=== PATIENT | female | born 1935 ===

== ENCOUNTER 2016-09-11 13:10 | Emergency (ER) | payer OTHER ==
[2016-09-11 13:24] VITALS: BP 151/72; PULSE 68; RESP 18; TEMP 98.1; O2SAT 99
--- NOTE | 2016-09-11 14:21 | ED PDOC ---
HPI: General Adult Time Seen by Provider: 09/11/16 13:29 Chief Complaint (Nursing): Eye Problem Additional Complaint(s): Jesusita Hopkins is a 81 year old female, with a previous medical history of hypertension and CAD, who presents to the ED with complaints of right temporal region for 3 weeks. Pt states sometimes she feels it in the right maxillary area as well. PT states she has had simusitis in the past but never pain on the side of the head. Pt states pain is a throbbing sensation. Pt denies any vision changes or trauma. Pt denies any additional complaints at this time. 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 PMD: none provided Past Medical History Reviewed: Historical Data, Nursing Documentation, Vital Signs Vital Signs: Last Vital Signs Temp 98.1 F 09/11/16 13:22 Pulse 68 09/11/16 13:22 Resp 18 09/11/16 13:22 BP 151/72 H 09/11/16 13:22 Pulse Ox 99 09/11/16 14:25 - Medical History PMH: CAD, HTN - Surgical History Surgical History: Appendectomy - Family History Family History: States: Unknown Family Hx - Home Medications Home Medications: Ambulatory Orders Medication Instructions Recorded Acetaminophen with Codeine 1 tab PO Q6H PRN #20 tab 05/23/14 [Tylenol with Codeine No. 3 300 mg-30 mg] Acetaminophen [Tylenol] 650 mg PO Q4 #30 tab 11/09/15 Cyclobenzaprine [Cyclobenzaprine 10 mg PO BID #14 tab 11/09/15 HCl] Azithromycin [Zithromax] 250 mg PO DAILY #6 tab 04/19/16 Promethazine/Codeine 5 ml PO Q8 #60 ml 04/19/16 [Codeine/Promethazine 10 MG/5 Ml-6.25 MG/5 Ml] predniSONE [predniSONE Tab] 60 mg PO DAILY #6 tab 09/11/16 - Allergies Allergies/Adverse Reactions: Allergies Allergy/AdvReac Type Severity Reaction Status Date / Time meprobamate Allergy RASH Verified 11/09/15 11:40 Review of Systems ROS Statement: Except As Marked, All Systems Reviewed And Found Negative Eyes: Negative for: Vision Change ENT: Positive for: Other (right sided maxillary sinus pain and temporal pain) Physical Exam - Reviewed Nursing Documentation Reviewed: Yes Vital Signs Reviewed: Yes - Physical Exam Appears: Positive for: Well, Non-toxic, No Acute Distress Head Exam: Positive for: ATRAUMATIC, NORMAL INSPECTION, NORMOCEPHALIC Skin: Positive for: Normal Color, Warm, DRY ENT: Positive for: Normal ENT Inspection ((+) tednerenss right temoral region). Negative for: Sinus Pain/Drainage Cardiovascular/Chest: Positive for: Regular Rate, Rhythm ((+) tenderness right temporal region ) Respiratory: Positive for: Normal Breath Sounds. Negative for: Accessory Muscle Use, Respiratory Distress Extremity: Positive for: Normal ROM - Laboratory Results Result Diagrams: 09/11/16 14:30 09/11/16 14:30 - ECG O2 Sat by Pulse Oximetry: 99 (RA) Pulse Ox Interpretation: Normal Medical Decision Making Medical Decision Making: Initial Impression: Sinus pain r/o temporal arthritis Initial Plan: * labs * sed rate * reevaluation Elevation of sed rate. Discussed possible temporal arteries and f/u with me on Wednesday in ER. Will begin on oral steroids. Ordered CRP which is send out (1-2 days) Scribe Attestation: Documented by Antoinette Hobbs, acting as a scribe for Nena Martin PA-C. Provider Scribe Attestation: All medical record entries made by the Scribe were at my direction and personally dictated by me. I have reviewed the chart and agree that the record accurately reflects my personal performance of the history, physical exam, medical decision making, and the department course for this patient. I have also personally directed, reviewed, and agree with the discharge instructions and disposition. Disposition - Clinical Impression Clinical Impression: Temporal arteritis - Patient ED Disposition Is Patient to be Admitted: No Counseled Patient/Family Regarding: Diagnosis, Need For Followup, Rx Given - Disposition Referrals: Nena Martin PA-C [Emergency Midlevel Provider] - Disposition: Routine/Home Disposition Time: 17:39 Condition: GOOD Additional Instructions: Zoe return to ER wednesday between 10-8pm Prescriptions: predniSONE [predniSONE Tab] 60 mg PO DAILY #6 tab Instructions: Temporal Arteritis (ED)
[2016-09-11 14:45] LABS: HEMATOCRIT 38.7 % (34.0-47.0); MEAN CELL VOLUME 94.6 fl (81.0-99.0); MEAN CORPUSCULAR HEMOGLOBIN 30.7 pg (27.0-31.0); MEAN CORPUSCULAR HGB CONC 32.5 g/dL (33.0-37.0); RED CELL DISTRIBUTION WIDTH 14.5 % (11.5-14.5); WHITE BLOOD COUNT 5.8 K/uL (4.8-10.8)
[2016-09-11 15:02] LABS: ALB/GLOB RATIO 1.1 (1.0-2.1); BILIRUBIN,TOTAL 0.5 mg/dl (0.2-1.3); CALCIUM 10.1 mg/dL (8.4-10.2); POTASSIUM 4.5 MMOL/L (3.6-5.0); TOTAL PROTEIN 8.2 G/DL (6.3-8.2)
== END 2016-09-11 17:46 | disposition home or self-care (01) ==
LOC: H.ER 13:10
DX: M31.6 Other giant cell arteritis (principal); I25.10 Atherosclerotic heart disease of native coronary artery without angina pectoris; I10 Essential (primary) hypertension

== ENCOUNTER 2016-09-14 10:13 | Emergency (ER) | payer OTHER ==
[2016-09-14 10:21] VITALS: BP 136/64; PULSE 66; RESP 16; TEMP 97.7; O2SAT 100
--- NOTE | 2016-09-14 10:50 | ED PDOC ---
HPI: CCC, URI, Sore Throat Time Seen by Provider: 09/14/16 10:15 Chief Complaint (Nursing): ENT Problem Chief Complaint (Provider): Right maxiallary and temporal pain/tenderness Additional Complaint(s): Pt reports pain for over 3 weeks. Pt states she has not improvement with steroids for 3 days. Pt reports right maxillary sinus pressure and right temporal pressure. Past Medical History Reviewed: Historical Data, Nursing Documentation, Vital Signs Vital Signs: Last Vital Signs Temp 97.7 F 09/14/16 10:19 Pulse 66 09/14/16 10:19 Resp 16 09/14/16 10:19 BP 136/64 09/14/16 10:19 Pulse Ox 100 09/14/16 10:19 - Medical History PMH: CAD, HTN, Hypercholesterolemia Denies: Chronic Kidney Disease - Surgical History Surgical History: Appendectomy - Family History Family History: States: Unknown Family Hx - Living Arrangements Living Arrangements: With Family - Social History Current smoker - smoking cessation education provided: No Alcohol: None Drugs: Denies - Home Medications Home Medications: Ambulatory Orders Medication Instructions Recorded Acetaminophen with Codeine 1 tab PO Q6H PRN #20 tab 05/23/14 [Tylenol with Codeine No. 3 300 mg-30 mg] Acetaminophen [Tylenol] 650 mg PO Q4 #30 tab 11/09/15 Cyclobenzaprine [Cyclobenzaprine 10 mg PO BID #14 tab 11/09/15 HCl] Azithromycin [Zithromax] 250 mg PO DAILY #6 tab 04/19/16 Promethazine/Codeine 5 ml PO Q8 #60 ml 04/19/16 [Codeine/Promethazine 10 MG/5 Ml-6.25 MG/5 Ml] predniSONE [predniSONE Tab] 60 mg PO DAILY #6 tab 09/11/16 Amoxicillin/Clavulanate [Augmentin 1 tab PO BID #20 tab 09/14/16 875 MG-125 MG] - Allergies Allergies/Adverse Reactions: Allergies Allergy/AdvReac Type Severity Reaction Status Date / Time meprobamate Allergy RASH Verified 09/14/16 10:30 Physical Exam - Reviewed Nursing Documentation Reviewed: Yes Vital Signs Reviewed: Yes - Physical Exam Appears: Positive for: Well, Non-toxic, No Acute Distress Head Exam: Positive for: ATRAUMATIC, NORMAL INSPECTION, NORMOCEPHALIC Skin: Positive for: Normal Color, Warm, DRY Eye Exam: Positive for: Normal appearance, EOMI, PERRL ENT: Positive for: Normal ENT Inspection, Other ((+) tenderness of the right maxillary sinus to percussion ) Neck: Positive for: Normal, Painless ROM Cardiovascular/Chest: Positive for: Regular Rate, Rhythm Respiratory: Positive for: CNT, Normal Breath Sounds Gastrointestinal/Abdominal: Positive for: Normal Exam, Bowel Sounds, Soft Back: Positive for: Normal Inspection Extremity: Positive for: Normal ROM Neurologic/Psych: Positive for: Alert, Oriented - ECG O2 Sat by Pulse Oximetry: 100 Pulse Ox Interpretation: Normal Medical Decision Making Medical Decision Making: CRP and ESR normal. Pt reports no improvement of pain with steroids x 3 days. Will treat as sinusitis. Pt has appointment with PMD on 09/30. Discussed f.u sooner if antibiotics are not helping. Disposition - Clinical Impression Clinical Impression: Sinusitis - Patient ED Disposition Is Patient to be Admitted: No - Disposition Referrals: [facility] [Outside] Disposition: Routine/Home Disposition Time: 10:50 Condition: GOOD Prescriptions: Amoxicillin/Clavulanate [Augmentin 875 MG-125 MG] 1 tab PO BID #20 tab Instructions: Sinusitis (ED) Print Language: KYRGYZ
== END 2016-09-14 11:01 | disposition home or self-care (01) ==
LOC: H.ER 10:13
DX: J32.9 Chronic sinusitis, unspecified (principal); I10 Essential (primary) hypertension

== ENCOUNTER 2016-11-09 00:46 | Emergency (ER) | payer OTHER ==
[2016-11-09 01:05] VITALS: PULSE 101; RESP 18; TEMP 99; O2SAT 98
[2016-11-09 01:33] LABS: HEMATOCRIT 36.2 % (34.0-47.0); MEAN CELL VOLUME 93.5 fl (81.0-99.0); MEAN CORPUSCULAR HEMOGLOBIN 30.7 pg (27.0-31.0); MEAN CORPUSCULAR HGB CONC 32.9 g/dL (33.0-37.0); RED CELL DISTRIBUTION WIDTH 13.5 % (11.5-14.5); WHITE BLOOD COUNT 7.1 K/uL (4.8-10.8)
[2016-11-09 01:44] LABS: CALCIUM 9.9 mg/dL (8.4-10.2); POTASSIUM 4.3 MMOL/L (3.6-5.0)
--- NOTE | 2016-11-09 02:00 | ED PDOC ---
HPI: Hypertension/Hypotension Time Seen by Provider: 11/09/16 01:03 Chief Complaint (Nursing): High Blood Pressure Chief Complaint (Provider): High blood pressure, nausea History Per: Patient History/Exam Limitations: no limitations Onset/Duration Of Symptoms: Hrs Current Symptoms Are (Timing): Still Present Additional History Per: Family (Daughter) Additional Complaint(s): Jesusita Enrique is a 81 y/o female with a past medical history of hypertension, hypercholesterolemia, coronary artery disease, and a past surgical history of an appendectomy who presents to the ED accompanied by her daughter with a chief complaint of mild nausea. After eating some beans patient felt nervous along with some nausea. Daughter states she measured mothers blood pressure of 160 systolic and thought it was too high and brought her to the ED. Associated symptoms include chills; Denies any chest pain, shortness of breath, abdominal pain or fever. Tetanus is up to date. PMD: Dr. Schulte Past Medical History Reviewed: Historical Data, Nursing Documentation, Vital Signs Vital Signs: Last Vital Signs Temp 99 F 11/09/16 01:02 Pulse 101 H 11/09/16 01:02 Resp 18 11/09/16 01:02 BP 123/63 11/09/16 01:02 Pulse Ox 98 11/09/16 01:02 - Medical History PMH: CAD, HTN, Hypercholesterolemia Denies: Chronic Kidney Disease - Surgical History Surgical History: Appendectomy - Family History Family History: States: Unknown Family Hx - Living Arrangements Living Arrangements: With Family - Home Medications Home Medications: Ambulatory Orders Medication Instructions Recorded Acetaminophen with Codeine 1 tab PO Q6H PRN #20 tab 05/23/14 [Tylenol with Codeine No. 3 300 mg-30 mg] Acetaminophen [Tylenol] 650 mg PO Q4 #30 tab 11/09/15 Cyclobenzaprine [Cyclobenzaprine 10 mg PO BID #14 tab 11/09/15 HCl] Azithromycin [Zithromax] 250 mg PO DAILY #6 tab 04/19/16 Promethazine/Codeine 5 ml PO Q8 #60 ml 04/19/16 [Codeine/Promethazine 10 MG/5 Ml-6.25 MG/5 Ml] predniSONE [predniSONE Tab] 60 mg PO DAILY #6 tab 09/11/16 Amoxicillin/Clavulanate [Augmentin 1 tab PO BID #20 tab 09/14/16 875 MG-125 MG] - Allergies Allergies/Adverse Reactions: Allergies Allergy/AdvReac Type Severity Reaction Status Date / Time meprobamate Allergy RASH Verified 11/09/16 01:02 Review of Systems ROS Statement: Except As Marked, All Systems Reviewed And Found Negative Constitutional: Positive for: Chills. Negative for: Fever Cardiovascular: Negative for: Chest Pain Respiratory: Negative for: Shortness of Breath Gastrointestinal: Positive for: Nausea (Mild). Negative for: Abdominal Pain Psych: Positive for: Other (Nervouseness) Physical Exam - Reviewed Nursing Documentation Reviewed: Yes Vital Signs Reviewed: Yes - Physical Exam Appears: Positive for: Well, Non-toxic, No Acute Distress Head Exam: Positive for: ATRAUMATIC, NORMAL INSPECTION, NORMOCEPHALIC Skin: Positive for: Normal Color, Warm, Dry Eye Exam: Positive for: Normal appearance, EOMI, PERRL ENT: Positive for: Normal ENT Inspection Neck: Positive for: Normal Cardiovascular/Chest: Positive for: Regular Rate, Rhythm. Negative for: Murmur , Tachycardia Respiratory: Positive for: Normal Breath Sounds. Negative for: Wheezing, Respiratory Distress Gastrointestinal/Abdominal: Positive for: Normal Exam, Soft. Negative for: Tenderness Neurologic/Psych: Positive for: Alert, Oriented - Laboratory Results Result Diagrams: 11/09/16 00:15 11/09/16 00:15 - ECG O2 Sat by Pulse Oximetry: 98 (RA) Pulse Ox Interpretation: Normal Medical Decision Making Medical Decision Making: Time: 0103: Initial Impression: Nausea and Anxiety Initial Plan: * EKG * BMP * CBC * Zestril 10mg PO * Zofran Tab 4mg PO * Re-Eval 2AM: Pt. is feeling better, no longer nauseated, vss, stable for d/c. return precautions given. Scribe Attestation: Documented by Loy Calixto acting as a scribe for Jimmy Yu MD. Provider Scribe Attestation: All medical record entries made by the Scribe were at my direction and personally dictated by me. I have reviewed the chart and agree that the record accurately reflects my personal performance of the history, physical exam, medical decision making, and the department course for this patient. I have also personally directed, reviewed, and agree with the discharge instructions and disposition. Disposition - Clinical Impression Clinical Impression: Chills - Disposition Referrals: Ren Schulte MD [Primary Care Provider] - Disposition Time: 02:00 Condition: STABLE Instructions: Hypertension (ED) Print Language: KYRGYZ
[2016-11-09 02:17] VITALS: BP 126/53
--- NOTE | 2016-11-10 16:39 | CARD ---
APPROVED REPORT EKG Measurement Heart [id number] <Conclusion> Normal sinus rhythm Normal ECG
== END 2016-11-09 02:17 | disposition home or self-care (01) ==
LOC: H.ER 00:46
DX: I10 Essential (primary) hypertension (principal); R68.83 Chills (without fever); R11.0 Nausea; E78.00 Pure hypercholesterolemia, unspecified; F41.9 Anxiety disorder, unspecified; I25.10 Atherosclerotic heart disease of native coronary artery without angina pectoris

== ENCOUNTER 2017-01-03 00:47 | Emergency (ER) | payer OTHER ==
[2017-01-03 01:05] VITALS: RESP 18; TEMP 98.5; O2SAT 100
[2017-01-03 01:56] LABS: BASO # 0.1 K/uL (0.0-0.2); BASO % 1.2 % (0.0-2.0); EOS # 0.3 K/uL (0.0-0.7); HEMATOCRIT 36.6 % (34.0-47.0); LYMPH # 1.6 K/uL (1.0-4.3); LYMPH % 25.7 % (20.0-40.0); MEAN CELL VOLUME 92.5 fl (81.0-99.0); MEAN CORPUSCULAR HEMOGLOBIN 30.4 pg (27.0-31.0); MEAN CORPUSCULAR HGB CONC 32.8 g/dL (33.0-37.0); MEAN PLATELET VOLUME 10.2 fl (7.2-11.7); MONO # 0.8 K/uL (0.0-0.8); MONO % 12.3 % (0.0-10.0); NEUT # 3.5 K/uL (1.8-7.0); NEUT % 55.8 % (50.0-75.0); RED CELL DISTRIBUTION WIDTH 14.3 % (11.5-14.5); WHITE BLOOD COUNT 6.2 K/uL (4.8-10.8)
[2017-01-03 02:23] LABS: BLOOD UREA NITROGEN 32 mg/dl (7-17); CALCIUM 10.2 mg/dL (8.4-10.2); CARBON DIOXIDE 29 mmol/L (22-30); CHLORIDE 101 mmol/L (98-107); GFR AFRICAN-AMERICAN 41; GLUCOSE,RANDOM 106 mg/dL (65-105); POTASSIUM 4.6 MMOL/L (3.6-5.0); SODIUM 138 mmol/l (132-148)
--- NOTE | 2017-01-03 02:28 | ED PDOC ---
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 No cp/sob, has 2/10 YANEZ. non- thunderclap, blurred vision, numbness, weakness, tingling. family concerned about high bp readings at home. Past Medical History Reviewed: Historical Data, Nursing Documentation, Vital Signs Vital Signs: Last Vital Signs Temp 98.5 F 01/03/17 01:01 Pulse 63 01/03/17 01:01 Resp 18 01/03/17 01:01 BP 209/77 H 01/03/17 01:01 Pulse Ox 100 01/03/17 01:01 - Medical History PMH: CAD, HTN, Hypercholesterolemia Denies: Chronic Kidney Disease - Surgical History Surgical History: Appendectomy - Family History Family History: States: Unknown Family Hx - Home Medications Home Medications: Ambulatory Orders Medication Instructions Recorded Aspirin [Adult Low Dose Aspirin EC] 81 mg PO DAILY 01/03/17 Chlorthalidone [Hygroton] 25 mg PO DAILY 01/03/17 Cholecalciferol (Vitamin D3) 5,000 units PO DAILY 01/03/17 [Vitamin D3] Enalapril Maleate [Vasotec] 20 mg PO DAILY 01/03/17 Febuxostat [Uloric] 40 mg PO DAILY 01/03/17 Isosorbide Dinitrate [Isordil] 10 mg PO DAILY 01/03/17 Simvastatin [Zocor] 20 mg PO HS 01/03/17 - Allergies Allergies/Adverse Reactions: Allergies Allergy/AdvReac Type Severity Reaction Status Date / Time meprobamate Allergy RASH Verified 01/03/17 01:00 Review of Systems ROS Statement: Except As Marked, All Systems Reviewed And Found Negative Neurological: Positive for: Headache Physical Exam - Reviewed Nursing Documentation Reviewed: Yes Vital Signs Reviewed: Yes - Physical Exam Appears: Positive for: Well, Non-toxic, No Acute Distress Head Exam: Positive for: ATRAUMATIC, NORMAL INSPECTION, NORMOCEPHALIC Skin: Positive for: Normal Color, Warm, DRY Eye Exam: Positive for: EOMI, Normal appearance, PERRL ENT: Positive for: Normal ENT Inspection Neck: Positive for: Normal, Painless ROM Cardiovascular/Chest: Positive for: Regular Rate, Rhythm Respiratory: Positive for: CNT, Normal Breath Sounds Gastrointestinal/Abdominal: Positive for: Normal Exam, Bowel Sounds, Soft Back: Positive for: Normal Inspection Extremity: Positive for: Normal ROM Neurologic/Psych: 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 Negative for: Motor/Sensory Deficits, Mood/Affect, Cerebellar Tests, Aphasia, Facial Droop - Laboratory Results Result Diagrams: 01/03/17 01:45 01/03/17 01:45 - ECG ECG Rhythm: Positive for: Normal QRS, Normal ST Segment, Sinus Rhythm O2 Sat by Pulse Oximetry: 100 Pulse Ox Interpretation: Normal Medical Decision Making Medical Decision Making: elevated bp, no symptoms other than mild YANEZ, not concerned for bleed, no head CT wwarranted. will do basic labs, clonidine .1mg. 245: BP resolving, pt. feels well, no lightheadedness, dizziness, cp/sob, YANEZ at this time. pt/ states that dr. denise adjusts her BP meds, told her to f/u w / Dr. Brown on Wednesday, return precautions given. Disposition - Clinical Impression Clinical Impression: Hypertension - Disposition Referrals: Jannette Brown MD [Staff Provider] - Disposition: Routine/Home Disposition Time: 02:45 Condition: STABLE Instructions: Hypertension (ED) Forms: [facility] (Togolese) Print Language: BELGIAN
[2017-01-03 03:13] VITALS: BP 122/53; PULSE 53
== END 2017-01-03 03:27 | disposition home or self-care (01) ==
LOC: H.ER 00:47
DX: I10 Essential (primary) hypertension (principal); E78.00 Pure hypercholesterolemia, unspecified; I25.10 Atherosclerotic heart disease of native coronary artery without angina pectoris; Z79.82 Long term (current) use of aspirin

== ENCOUNTER 2017-01-12 01:23 | Emergency (ER) | payer OTHER ==
[2017-01-12 01:42] VITALS: BMI 29.2
[2017-01-12 02:03] VITALS: RESP 16; TEMP 98
[2017-01-12 02:13] LABS: BASO % 0.8 % (0.0-2.0); EOS # 0.4 K/uL (0.0-0.7); HEMOGLOBIN 12.1 g/dL (12.0-16.0); LYMPH # 1.8 K/uL (1.0-4.3); LYMPH % 35.7 % (20.0-40.0); MEAN CORPUSCULAR HEMOGLOBIN 30.5 pg (27.0-31.0); MEAN CORPUSCULAR HGB CONC 33.2 g/dL (33.0-37.0); MEAN PLATELET VOLUME 10.1 fl (7.2-11.7); MONO # 0.6 K/uL (0.0-0.8); MONO % 12.6 % (0.0-10.0); NEUT # 2.2 K/uL (1.8-7.0); NEUT % 43.9 % (50.0-75.0); RBC 3.95 Mil/uL (3.80-5.20); RED CELL DISTRIBUTION WIDTH 14.1 % (11.5-14.5); WHITE BLOOD COUNT 5.1 K/uL (4.8-10.8)
--- NOTE | 2017-01-12 02:13 | ED PDOC ---
HPI: Hypertension/Hypotension Time Seen by Provider: 01/12/17 01:36 Chief Complaint (Nursing): High Blood Pressure Chief Complaint (Provider): High Blood Pressure/Ringing in Ears History Per: Patient History/Exam Limitations: no limitations Onset/Duration Of Symptoms: Hrs (x5) Current Symptoms Are (Timing): Better Additional Complaint(s): Jesusita Hopkins is a 81 year old female with a history of hypertension and hyperlipidemia that presents to the ED with a chief complaint of elevated blood pressure and intermittent buzzing in her left ear that she has been experiencing for the past five hours. Patient reports that earlier tonight her BP was 140 systolic, which prompted her to take an extra dose of her Amlodipine. Afterwards, she measured her blood pressure once again, at which point her systolic pressure had elevated to 180, which prompted her ED visit. She denies any associated nausea, vomiting, diaphoresis, chest pain, or cough. Patient states that her tinnitus has improved upon arrival in ED. Of Note: Patient has had similar episodes in the past, including one hat occurred two weeks ago, of which she was evaluated for in the ED. Past Medical History Reviewed: Historical Data, Nursing Documentation, Vital Signs Vital Signs: Last Vital Signs Temp 98.0 F 01/12/17 01:42 Pulse 67 01/12/17 01:45 Resp 16 01/12/17 01:42 BP 180/75 H 01/12/17 01:42 Pulse Ox 98 01/12/17 01:42 - Medical History PMH: CAD, HTN, Hypercholesterolemia Denies: Chronic Kidney Disease - Surgical History Surgical History: Appendectomy Other surgeries: tubal ligation - Family History Family History: States: Unknown Family Hx - Social History Current smoker - smoking cessation education provided: No Alcohol: None Drugs: Denies - Home Medications Home Medications: Ambulatory Orders Medication Instructions Recorded Aspirin [Adult Low Dose Aspirin EC] 81 mg PO DAILY 01/03/17 Chlorthalidone [Hygroton] 25 mg PO DAILY 01/03/17 Cholecalciferol (Vitamin D3) 5,000 units PO DAILY 01/03/17 [Vitamin D3] Enalapril Maleate [Vasotec] 20 mg PO DAILY 01/03/17 Febuxostat [Uloric] 40 mg PO DAILY 01/03/17 Isosorbide Dinitrate [Isordil] 10 mg PO DAILY 01/03/17 Simvastatin [Zocor] 20 mg PO HS 01/03/17 amLODIPine [Norvasc] 10 mg PO DAILY 01/12/17 - Allergies Allergies/Adverse Reactions: Allergies Allergy/AdvReac Type Severity Reaction Status Date / Time meprobamate Allergy RASH Verified 01/12/17 01:42 Review of Systems Constitutional: Negative for: Other (denies diaphoresis) ENT: Positive for: Other (tinnitus in left ear) Cardiovascular: Positive for: Other (elevated blood pressure). Negative for: Chest Pain Respiratory: Negative for: Cough Gastrointestinal: Negative for: Nausea, Vomiting Physical Exam - Reviewed Nursing Documentation Reviewed: Yes Vital Signs Reviewed: Yes - Physical Exam Appears: Positive for: Non-toxic, No Acute Distress Head Exam: Positive for: ATRAUMATIC, NORMOCEPHALIC Skin: Positive for: Normal Color, Warm Eye Exam: Positive for: Normal appearance, EOMI, PERRL ENT: Positive for: Normal ENT Inspection Cardiovascular/Chest: Positive for: Regular Rate, Rhythm. Negative for: Murmur Respiratory: Positive for: Normal Breath Sounds. Negative for: Wheezing Gastrointestinal/Abdominal: Positive for: Normal Exam, Soft. Negative for: Tenderness Neurologic/Psych: Positive for: Alert, Oriented. Negative for: Motor/Sensory Deficits - Laboratory Results Result Diagrams: 01/12/17 02:10 01/12/17 02:10 - ECG O2 Sat by Pulse Oximetry: 98 (RA) Pulse Ox Interpretation: Normal Medical Decision Making Medical Decision Making: Impression: 81 year old Hypertensive female with associated tinnitus Plan: * EKG * BMP * CBC * Troponin * Urine dip * Urinalysis * Reevaluation 3:18 Labs reviewed, no clinically significant abnormalities. Blood pressure has remained normal for duration of visit to ED. Patient is advised to follow up with PMD within the next 24 hours. Patient is stable for discharge home. Clinical Impression: Hypertension Scribe Attestation: Documented by Lena Mendosa, acting as a scribe for Tian Fernandez MD. Provider Scribe Attestation: All medical record entries made by the Scribe were at my direction and personally dictated by me. I have reviewed the chart and agree that the record accurately reflects my personal performance of the history, physical exam, medical decision making, and the department course for this patient. I have also personally directed, reviewed, and agree with the discharge instructions and disposition. Disposition - Clinical Impression Clinical Impression: Hypertension - Patient ED Disposition Is Patient to be Admitted: No - Disposition Referrals: Ren Schulte MD [Primary Care Provider] - Disposition: Routine/Home Disposition Time: 03:18 Condition: STABLE Instructions: Hypertension (ED) Forms: [facility] (Monegasque), [facility] (Finnish) Print Language: NAURUAN
[2017-01-12 02:21] LABS: BLOOD UREA NITROGEN 31 mg/dl (7-17); GFR AFRICAN-AMERICAN 41; GFR NON-AFRICAN AMERICAN 33
[2017-01-12 02:29] LABS: SQUAMOUS EPITHIAL < 1 /hpf (0-5); URINE BILIRUBIN NEGATIVE (NEGATIVE); URINE BLOOD NEGATIVE (NEGATIVE); URINE CLARITY CLEAR (Clear); URINE COLOR COLORLESS (YELLOW); URINE GLUCOSE (UA) NEG (Normal); URINE LEUKOCYTE ESTERASE NEG Leu/uL (Negative); URINE NITRATE NEGATIVE (NEGATIVE); URINE PROTEIN NEGATIVE (NEGATIVE); URINE UROBILINOGEN 0.2-1.0 mg/dL (0.2-1.0)
[2017-01-12 03:19] VITALS: BP 138/72; PULSE 64
[2017-01-12 03:20] VITALS: O2SAT 98
--- NOTE | 2017-01-12 07:58 | CARD ---
APPROVED REPORT EKG Measurement Heart [id number] <Conclusion> Sinus rhythm with marked sinus arrhythmia Otherwise normal ECG
== END 2017-01-12 03:18 | disposition home or self-care (01) ==
LOC: H.ER 01:23
DX: I10 Essential (primary) hypertension (principal); E78.00 Pure hypercholesterolemia, unspecified; I25.10 Atherosclerotic heart disease of native coronary artery without angina pectoris; Z79.82 Long term (current) use of aspirin